=== PATIENT | male | born 1970 | race African-American/Black ===

== ENCOUNTER 2019-04-28 02:35 | Emergency (ER) | payer MEDICAID, MEDICARE ==
[~2019-04-28] VITALS: Ht 180.3 cm; Wt 73.5 kg
[~2019-04-28 02:35] MED LIST: DEPAKOTE250 MG PO; NKM; QUETIAPINE FUMA25 MG ORAL; RISPERDAL0.25 MG ORAL; WELLBUTRIN75 MG ORAL; ZOLOFT25 MG ORAL
[2019-04-28 02:42] VITALS: BP 134/92
--- NOTE | 2019-04-28 02:42 | NUR ---
ED Nurse Note: Patient brought in by ambulance [id number] d/t behavioral complaint. Patient stated cocaine use for 3 days. Per patient, he does not feel safe outside. Patient denies pain. Patient given gown to change into and hospital socks. Patient aao x 4 and ambulatory. No acute distress at this time.
--- NOTE | 2019-04-28 02:52 | NUR ---
ED Nurse Note: ERMD at bedside
--- NOTE | 2019-04-28 02:58 | Emergency Room Report ---
History of Present Illness General Chief Complaint: Behavioral Complaint Source: Patient Present Illness HPI Is a 48-year-old male with history of schizoaffective disorder. He presents with chief complaint of suicidal thoughts. He said is been ongoing for a while. Denies any specific plan. Has a history of cocaine abuse. Last psychiatric admission was over 6 months ago. He does not take any medication. He [address] Here he told me that he just want a place to sleep. Denies any other complaint. Allergies: Coded Allergies: CODEINE (Unverified Allergy, Mild, 05/25/17) DIVALPROEX SODIUM (Unverified Allergy, Unknown, 10/09/13) Patient History Past Medical History: see triage record, old chart reviewed, psych hx Past Surgical History: none Family History: none Social History: tobacco use, drug use Immunizations: other Reviewed Nursing Documentation: PMH: Agreed; PSxH: Agreed Nursing Documentation-PMH Past Medical History: No History, Except For Review of Systems ENT: Denies: sore throat Cardiovascular: Denies: chest pain, palpitations Gastrointestinal/Abdominal: Denies: nausea, vomiting, diarrhea Musculoskeletal: Denies: back problems Skin: Denies: rash Psychiatric: Reports: prior hx Neurological: Denies: GOMEZ, seizures All Other Systems: negative except mentioned in HPI Physical Exam Vital Signs Date Time Temp Pulse Resp B/P (MAP) Pulse Ox O2 Delivery O2 Flow Rate FiO2 04/28/19 02:40 97.9 74 12 129/81 (97) 98 Room Air Vitals normal Sp02 EP Interpretation: reviewed, normal General Appearance: alert/responsive, no apparent distress, non-toxic Head: normocephalic, atraumatic Eyes: PERRL, EOMI ENT: oropharynx normal Neck: supple/symm/no masses Respiratory: effort normal, no rhonchi, no wheezing Cardiovascular: no murmur, gallop, rub Gastrointestinal: non-tender, no mass, non-distended, no rebound/guarding, normal bowel sounds Musculoskeletal: gait & station normal Neurologic: oriented x3, sensory intact, motor strength/tone normal Skin: no rash, normal palpation Medical Decision Making Diagnostic Impression: Primary Impression: Cocaine abuse Additional Impression: Suicidal ideation ER Course Patient initially called [address] because he said he is suicidal. I suspect they want a place to stay because it's cold and is raining outside. When I asked him about any particular plans he denies any plan. He admits to me that he is want a place to sleep. He is not suicidal. Will discharge in the morning. This patient is a chronic risk of self injury due to poor impulse control, limited coping skills, and judgment intermittently impaired by intoxication. I believe that the available clinical evidence to suggest that these characteristics derived primarily from personality disorder and are likely very stable over time. Hospitalization would likely attenuate risk of self-harm only during alf period, without lasting risk reduction. Serious self-harm , while possible, would likely be inadvertent, and because of impulsivity, and foreseeable. For these reasons, I do not believe hospitalization would provide meaningful reduction in risk of self-harm. Last Vital Signs Date Time Temp Pulse Resp B/P (MAP) Pulse Ox O2 Delivery O2 Flow Rate FiO2 04/28/19 02:42 74 18 Room Air 04/28/19 02:42 98.3 134/92 99 Status: improved Disposition: HOME, SELF-CARE Condition: Stable Patient Instructions: Self-Destructive Behavior Additional Instructions: Follow-up with mental health in a week. Stop using drugs. Return if symptoms worsen. Eduardo Schmitt MD Apr 28, 2019 02:58
--- NOTE | 2019-04-28 05:45 | NUR ---
ER DISCHARGE NOTE: Patient cleared for discharge per ERMD. patient given discharge instructions but refused to sign discharge paperwork stating "I've only been here for 30 mins I want to be admitted". Explained to pt ERMD deemed pt clear for discharge. Patient refused to discharge and became agitated threatening RN. Security was called and patient was provided with resources as well as dry clothes to wear. Patient escorted by security off premises and was stable upon discharge.
== END 2019-04-28 05:45 | disposition home or self-care (01) ==
LOC: EDUNIT# 02:35 → EDBD 02:35 → EMR 03:00
DX: F14.10 Cocaine abuse, uncomplicated (principal); R45.851 Suicidal ideations; Z88.6 Allergy status to analgesic agent
CPT/HCPCS: 99283